=== PATIENT | male | born 1965 | race African-American/Black ===

== ENCOUNTER 2022-04-20 19:12 | Inpatient (IN) | payer OTHER ==
[2022-04-20 20:37] VITALS: BMI 22.4
[2022-04-20] MEDS ORDERED: NALOXONE HCL (KLOXXADO) 8 MG SPRAY NS PRN (20:52)
[2022-04-20] MEDS ORDERED: guaiFENesin 200 MG/10 ML 10 ML UNIT-DOSE CUPS PO PRN (20:52)
[2022-04-20] MEDS ORDERED: P-EPHED 60MG/TRIPROLIDI 2.5MG TABLET PO PRN (20:52)
[2022-04-20] MEDS ORDERED: MAGNESIUM CITRATE 300 ML BOTTLE PO PRN (20:52)
[2022-04-20] MEDS ORDERED: NICOTINE POLACRILEX 2 MG GUM BUC PRN (20:52)
[2022-04-20] MEDS ORDERED: BISMUTH SUBSALICYLATE 524 MG/30 ML PO PRN (20:52)
[2022-04-20] MEDS ORDERED: LOPERAMIDE HCL 2 MG CAPSULE PO PRN (20:52)
[2022-04-20] MEDS ORDERED: MAG HYDROX/AL HYDROX/SIMETH 30 ML UNIT-DOSE CUP PO PRN (20:52)
[2022-04-20] MEDS ORDERED: hydrOXYzine PAMOATE 25 MG CAPSULE (FP) PO PRN (20:52)
[2022-04-20] MEDS ORDERED: BENZOCAINE/MENTHOL (CHLORASEPTIC ) LOZENGE MM PRN (20:52)
[2022-04-20] MEDS ORDERED: METHOCARBAMOL 500 MG TABLET PO PRN (20:52)
[2022-04-20] MEDS ORDERED: ACETAMINOPHEN 325 MG TABLET (FP) PO PRN ×2 (20:52)
[2022-04-20] MEDS ORDERED: IBUPROFEN 400 MG TABLET (FP) PO PRN (20:52)
[2022-04-20] MEDS ORDERED: MAGNESIUM HYDROX 2400MG/30ML ORAL SUSPENSION 30 ML CUP PO PRN (20:52)
[2022-04-20] MEDS ORDERED: ONDANSETRON *ODT* 4 MG TABLET SL PRN (20:52)
[2022-04-20] MEDS ORDERED: IBUPROFEN 600 MG TABLET (FP) PO PRN (20:52)
[2022-04-20] MEDS ORDERED: diazePAM 5 MG TABLET PO PRN (20:52)
[2022-04-20] MEDS ORDERED: methaDONE HCL 10 MG TABLET (FOR DETOX USE ONLY) PO ONE (21:00)
[2022-04-20] MEDS ORDERED: methaDONE HCL 10 MG TABLET (FOR DETOX USE ONLY) ONE (22:22)
[2022-04-20] MEDS: diazePAM 5 MG TABLET PO SCH (23:52)
[2022-04-20] MEDS: MELATONIN 5 MG TABLETS PO SCH (23:52)
[2022-04-20] MEDS: THIAMINE HCL 100 MG TABLET (FP) PO SCH (23:53)
[2022-04-21] MEDS: diazePAM 5 MG TABLET PO SCH ×3 (05:30→17:23)
[2022-04-21] MEDS ORDERED: methaDONE HCL 10 MG TABLET (FOR DETOX USE ONLY) ONE (09:00)
[2022-04-21] MEDS ORDERED: NICOTINE 21 MG/24 HOURS TOPICAL PATCH TD SCH (10:00)
[2022-04-21] MEDS ORDERED: PRENATAL VITAMINS W/ FOLIC ACID TABLET (FP) PO SCH (10:00)
[2022-04-21] MEDS ORDERED: TRIMETHOBENZAMIDE HCL 200MG/2ML INJ IM PRN (11:28)
[2022-04-21] MEDS: DICYCLOMINE HCL 10 MG CAPSULE PO PRN ×2 (12:02→17:23)
[2022-04-21] MEDS: cloNIDine HCL 0.1 MG TABLET PO PRN ×2 (13:27→17:23)
[2022-04-21 23:43] VITALS: BP 176/99; PULSE 44; TEMP 98.6
[2022-04-22] MEDS: diazePAM 5 MG TABLET PO SCH (00:12)
[2022-04-22] MEDS: THIAMINE HCL 100 MG TABLET (FP) PO SCH (00:12)
[2022-04-22] MEDS: MELATONIN 5 MG TABLETS PO SCH (00:12)
[2022-04-22] MEDS ORDERED: diazePAM 5 MG TABLET PO SCH (06:00)
[2022-04-22] MEDS ORDERED: methaDONE HCL 10 MG TABLET (FOR DETOX USE ONLY) PO ONE (10:00)
[2022-04-23] MEDS ORDERED: diazePAM 5 MG TABLET PO SCH (06:00)
[2022-04-24] MEDS ORDERED: diazePAM 5 MG TABLET PO ONE (06:00)
[2022-04-24] MEDS ORDERED: methaDONE HCL 10 MG TABLET (FOR DETOX USE ONLY) PO ONE (10:00)
== END 2022-04-22 04:53 | disposition short-term general hospital (02) | DRG 773 ==
LOC: YASAS 19:12 → Y6N 22:03
PROVIDERS: ADMIT Allergy & Immunology; ATTEND Surgery
PROC: HZ2ZZZZ Detoxification Services for Substance Abuse Treatment (ICD-10-PCS; principal; 2022-04-20)
DX: F11.23 Opioid dependence with withdrawal (principal); F10.230 Alcohol dependence with withdrawal, uncomplicated; F14.20 Cocaine dependence, uncomplicated; F13.20 Sedative, hypnotic or anxiolytic dependence, uncomplicated; F12.20 Cannabis dependence, uncomplicated; F17.210 Nicotine dependence, cigarettes, uncomplicated; F32.A Depression, unspecified; R00.1 Bradycardia, unspecified; R10.13 Epigastric pain; R11.10 Vomiting, unspecified; Z28.310 Unvaccinated for COVID-19
CPT/HCPCS: 93005; 93010; C9803-CS; J0735; U0003; U0005

== ENCOUNTER 2022-04-21 21:24 | Inpatient (IN) | payer OTHER ==
[2022-04-21 21:41] VITALS: TEMP 98.6
[2022-04-21 21:46] VITALS: BMI 22.2
[2022-04-21 22:24] LABS: EOS % 0.1 % (0-4.5); HEMATOCRIT 45.3 % (35.4-49); HEMOGLOBIN 15.5 GM/dL (11.7-16.9); LYMPH % 16.5 % (8-40); MCH 30.5 pg (25.7-33.7); MCHC 34.2 g/dl (32.0-35.9); MEAN CELL VOLUME 89.1 fl (80-96); MEAN PLT VOLUME 7.6 fl (7.5-11.1); MONO % 7.8 % (3.8-10.2); NEUT % 74.6 % (42.8-82.8); PLATELET COUNT 331 10^3/uL (134-434); RBC 5.09 M/mm3 (4.00-5.60); RDW 13.5 % (11.9-15.9); WHITE BLOOD COUNT 4.3 K/mm3 (4.0-10.0)
[2022-04-21 22:31] LABS: INR 1.15 (0.83-1.09); PROTHROMBIN TIME (PATIENT) 13.2 SEC (9.7-13.0)
[2022-04-21 22:33] LABS: ACTIVATED PTT 35.9 SECONDS (25.2-36.5)
[2022-04-21 22:45] LABS: CALCIUM 9.1 mg/dL (8.5-10.1)
[2022-04-21 22:46] LABS: ALBUMIN 3.5 g/dl (3.4-5.0)
[2022-04-21 22:48] LABS: CREATININE 0.6 mg/dL (0.55-1.3)
[2022-04-21] MEDS ORDERED: ACETAMINOPHEN 1000 MG/100 ML BAG IVPB ONE (22:48)
[2022-04-21] MEDS ORDERED: ACETAMINOPHEN INJECTION 100 ML IVPB ONE (22:49)
[2022-04-21 22:50] LABS: BILIRUBIN,TOTAL 0.9 mg/dL (0.2-1)
[2022-04-22] MEDS ORDERED: ASPIRIN 81 MG CHEWABLE TABLETS PO ONE (01:56)
[2022-04-22] MEDS ORDERED: ASPIRIN 81 MG CHEWABLE TABLETS ONE ×2 (01:58→01:59)
[2022-04-22] MEDS ORDERED: LORazepam 2 MG/ML SDV VIAL IVPUSH ONE (02:09)
[2022-04-22] MEDS ORDERED: hydrALAZINE HCL 20 MG/ML VIAL IVPUSH ONE (03:29)
[2022-04-22] MEDS ORDERED: hydrALAZINE HCL 20 MG/ML VIAL ONE (03:39)
[2022-04-22] MEDS ORDERED: ONDANSETRON 4 MG/2 ML VIAL ONE (04:32)
[2022-04-22] MEDS ORDERED: cloNIDine HCL 0.1 MG TABLET PO PRN (04:47)
[2022-04-22] MEDS ORDERED: LORazepam 1 MG TABLET PO PRN (04:47)
[2022-04-22] MEDS ORDERED: TRIMETHOBENZAMIDE HCL 200MG/2ML INJ IM PRN (04:52)
[2022-04-22 04:55] LABS: URINE APPEARANCE CLEAR; URINE BILIRUBIN NEGATIVE (NEGATIVE); URINE COLOR YELLOW; URINE GLUCOSE (UA) NEGATIVE (NEGATIVE); URINE KETONE 2+ (NEGATIVE); URINE LEUK ESTERASE NEGATIVE (NEGATIVE); URINE NITRITE NEGATIVE (NEGATIVE); URINE PROTEIN NEGATIVE (NEGATIVE)
[2022-04-22] MEDS ORDERED: FOLIC ACID INJECTION - 1 MG, THIAMINE HCL 100 MG, MULTIVIT INJECTION ADULT 10 ML in SOD... IVPB ONE (04:58)
[2022-04-22] MEDS ORDERED: LORazepam 1 MG TABLET PO SCH (05:00)
[2022-04-22] MEDS ORDERED: methaDONE HCL 10 MG TABLET PO ONE (05:30)
[2022-04-22] MEDS ORDERED: LORazepam 1 MG TABLET ONE (05:33)
[2022-04-22] MEDS ORDERED: methaDONE HCL 10 MG TABLET ONE (05:33)
[2022-04-22] MEDS ORDERED: SODIUM CHLORIDE 1,000 ML IV SCH (07:00)
[2022-04-22] MEDS ORDERED: MAGNESIUM 1GM/D5W - 1 GM/100 ML IVPB IVPB ONE (09:41)
[2022-04-22] MEDS ORDERED: ENOXAPARIN NA (PORCINE) 40 MG/0.4 ML DISP.SYRIN SQ ONE (09:41)
[2022-04-22] MEDS ORDERED: ENOXAPARIN NA (PORCINE) 40 MG/0.4 ML DISP.SYRIN SQ SCH (10:00)
[2022-04-22] MEDS ORDERED: MAGNESIUM 1GM/D5W 100ML - 100 ML IVPB IVPB ONE (10:00)
[2022-04-22] MEDS ORDERED: SODIUM CHLORIDE 1 GM TABLET PO ONE (11:00)
[2022-04-22 11:27] VITALS: BP 152/72; PULSE 89
[2022-04-23] MEDS ORDERED: LORazepam 1 MG TABLET PO SCH (05:00)
[2022-04-23] MEDS ORDERED: amLODIPine BESYLATE 10 MG TABLET (FP) PO SCH (10:00)
[2022-04-24] MEDS ORDERED: LORazepam 0.5 MG TABLET PO PRN
[2022-04-24] MEDS ORDERED: LORazepam 0.5 MG TABLET PO SCH (05:00)
[2022-04-24] MEDS ORDERED: methaDONE HCL 10 MG TABLET PO ONE (10:00)
[2022-04-25] MEDS ORDERED: LORazepam 0.5 MG TABLET PO ONE (05:00)
[2022-04-26] MEDS ORDERED: methaDONE HCL 10 MG TABLET PO ONE (10:00)
== END 2022-04-22 13:08 | disposition other institution (70) | DRG 773 ==
LOC: JER 21:24 → JERBED 04-22 03:57 → OBSVTOIN 04-22 04:52
PROVIDERS: ADMIT Internal Medicine; ATTEND Internal Medicine
DX: F10.239 Alcohol dependence with withdrawal, unspecified (principal); F11.23 Opioid dependence with withdrawal; I24.8 Other forms of acute ischemic heart disease; E87.8 Other disorders of electrolyte and fluid balance, not elsewhere classified; R10.84 Generalized abdominal pain; I16.0 Hypertensive urgency; R11.2 Nausea with vomiting, unspecified; R19.7 Diarrhea, unspecified; F32.A Depression, unspecified; F17.210 Nicotine dependence, cigarettes, uncomplicated
CPT/HCPCS: 36415; 71045-TC-FY; 74177-TC; 80053; 81003; 83690; 84484; 85025; 85610; 85730; 87086; 87186; 93005; 93010; 99285-25; G0378; Q9967

== ENCOUNTER 2023-09-27 21:23 | Inpatient (IN) | payer OTHER ==
[2023-09-27] MEDS ORDERED: NALOXONE HCL 0.4 MG/ML VIAL ONE (21:43)
[2023-09-27 22:56] LABS: CHLORIDE 105 mmol/L (98-107); POTASSIUM 4.8 mmol/L (3.5-5.1); SODIUM 138 mmol/L (136-145)
[2023-09-27 22:58] LABS: CALCIUM 8.9 mg/dL (8.5-10.1)
[2023-09-27 23:00] LABS: ALBUMIN 2.7 g/dl (3.4-5.0); ANION GAP 5 mmol/L (4-13); CO2 27 mmol/L (21-32); GLUCOSE,RANDOM 74 mg/dL (74-106)
[2023-09-27 23:01] LABS: BASO % 0.6 % (0-2.0); EOS % 2.5 % (0-4.5); HEMATOCRIT 31.4 % (35.4-49); HEMOGLOBIN 10.5 GM/dL (11.7-16.9); MCH 29.7 pg (25.7-33.7); MCHC 33.5 g/dl (32.0-35.9); MEAN CELL VOLUME 88.6 fl (80-96); MEAN PLT VOLUME 6.6 fl (7.5-11.1); NEUT % 52.9 % (42.8-82.8); PLATELET COUNT 328 10^3/uL (134-434); RBC 3.54 M/mm3 (4.00-5.60); RDW 13.2 % (11.9-15.9); WHITE BLOOD COUNT 3.9 K/mm3 (4.0-10.0)
[2023-09-27 23:03] LABS: BILIRUBIN,TOTAL 0.6 mg/dL (0.2-1); CREATININE 0.9 mg/dL (0.55-1.3); PHOSPHOROUS 3.5 mg/dL (2.5-4.9); SGOT/AST 26 U/L (15-37); SGPT/ALT 15 U/L (13-61); TOT PROT 6.7 g/dl (6.4-8.2)
[2023-09-27 23:06] LABS: ALK PHOS 56 U/L (45-117)
[2023-09-27 23:35] LABS: N-TERMINAL BNP 506.3 pg/ml (5-125)
[2023-09-28] MEDS ORDERED: AZITHROMYCIN IVPB 500 MG/250 ML BAG IVPB ONE (05:38)
[2023-09-28] MEDS ORDERED: CEFTRIAXONE 1 GM/50 ML BAG ONE (05:38)
[2023-09-28] MEDS: AZITHROMYCIN IVPB 500 MG in DEXTROSE 5%-WATER - 250 ML IVPB ONE (05:42)
[2023-09-28] MEDS ORDERED: ACETAMINOPHEN INJECTION 100 ML IVPB ONE (06:50)
[2023-09-28] MEDS: ACETAMINOPHEN 1000 MG/100 ML BAG IVPB ONE (06:54)
[2023-09-28] MEDS ORDERED: NICOTINE 14 MG/24 HOURS TOPICAL PATCH TD ONE (09:01)
[2023-09-28] MEDS ORDERED: methaDONE HCL 10 MG TABLET ONE (09:01)
[2023-09-28] MEDS ORDERED: AMPICILLIN NA/SULBACTAM NA 1.5 GM VIAL ONE ×3 (09:01→21:43)
[2023-09-28] MEDS ORDERED: ENOXAPARIN NA (PORCINE) 40 MG/0.4 ML DISP.SYRIN SQ ONE (09:01)
[2023-09-28] MEDS: NICOTINE 14 MG/24 HOURS TOPICAL PATCH TD SCH (09:20)
[2023-09-28] MEDS: ENOXAPARIN NA (PORCINE) 40 MG/0.4 ML DISP.SYRIN SQ SCH (09:20)
[2023-09-28] MEDS: AMPICILLIN NA/SULBACTAM NA 1.5 GM in SODIUM CHLORIDE 100 ML IVPB SCH (09:20)
[2023-09-28] MEDS: methaDONE HCL 10 MG TABLET (FOR DETOX USE ONLY) PO ONE (09:20)
[2023-09-28] MEDS ORDERED: MAG HYDROX/AL HYDROX/SIMETH 30 ML UNIT-DOSE CUP PO PRN (10:09)
[2023-09-28] MEDS: methaDONE HCL 10 MG TABLET PO ONE (10:10)
[2023-09-28] MEDS ORDERED: BUPRENORPHINE/NALOXONE 8 MG/2 MG FILM PACKET ONE ×2 (10:37→21:43)
[2023-09-28] MEDS ORDERED: DOXYCYCLINE HYCLATE 100 MG VIAL ONE ×2 (10:37→21:43)
[2023-09-28] MEDS ORDERED: PANTOPRAZOLE SODIUM 40 MG VIAL ONE (10:37)
[2023-09-28] MEDS: BUPRENORPHINE/NALOXONE 8 MG/2 MG FILM PACKET SL SCH (10:54)
[2023-09-28] MEDS: PANTOPRAZOLE SODIUM 40 MG VIAL IVPUSH SCH (10:54)
[2023-09-28] MEDS: DOXYCYCLINE INJECTION 100 MG in DEXTROSE 5%-WATER 100 ML IVPB SCH (11:11)
[2023-09-29] MEDS: FOLIC ACID INJECTION - 1 MG, THIAMINE HCL 100 MG, MULTIVIT INJECTION ADULT 10 ML in SOD... IVPB ONE (01:31)
[2023-09-29] MEDS ORDERED: AMPICILLIN NA/SULBACTAM NA 1.5 GM VIAL ONE (01:39)
[2023-09-29] MEDS ORDERED: BUPRENORPHINE/NALOXONE 8 MG/2 MG FILM PACKET ONE (11:22)
[2023-09-29] MEDS: AMOXICILLIN 500 MG CAPSULE (FP) PO SCH (17:23)
[2023-09-29] MEDS: DOXYCYCLINE HYCLATE 100 MG CAPSULE PO SCH (17:46)
[2023-09-29 21:24] LABS: METHADONE, UR NEGATIVE (NEGATIVE)
[2023-09-29 21:26] LABS: OPIATES, URI NEGATIVE (NEGATIVE); URINE BARBITURATES NEGATIVE (NEGATIVE)
[2023-09-29 21:34] LABS: PHENCYCLIDINE,URINE NEGATIVE (NEGATIVE)
[2023-09-29 21:35] LABS: COCAINE, UR POSITIVE (NEGATIVE); URINE AMPHETAMINES NEGATIVE (NEGATIVE); URINE BENZODIAZEPINES POSITIVE (NEGATIVE)
[2023-09-29] MEDS: cloNIDine HCL 0.1 MG TABLET PO PRN (23:18)
[2023-09-30] MEDS: FOLIC ACID 1 MG TABLET (FP) PO SCH (09:03)
[2023-09-30] MEDS: THIAMINE HCL 100 MG TABLET (FP) PO SCH (09:03)
[2023-09-30] MEDS: amLODIPine BESYLATE 10 MG TABLET (FP) PO SCH (09:26)
[2023-09-30] MEDS: PANTOPRAZOLE 40 MG TABLET PO SCH (09:26)
[2023-09-30 09:43] LABS: MCH 29.7 pg (25.7-33.7); MCHC 34.1 g/dl (32.0-35.9); MEAN CELL VOLUME 87.3 fl (80-96); MEAN PLT VOLUME 7.4 fl (7.5-11.1); PLATELET COUNT 507 10^3/uL (134-434); RDW 13.4 % (11.9-15.9); WHITE BLOOD COUNT 5.3 K/mm3 (4.0-10.0)
[2023-09-30] MEDS ORDERED: methaDONE HCL 10 MG TABLET PO ONE (10:00)
[2023-09-30 10:05] LABS: POTASSIUM 3.7 mmol/L (3.5-5.1)
[2023-09-30 10:06] LABS: CALCIUM 9.2 mg/dL (8.5-10.1)
[2023-09-30 10:07] LABS: BLOOD UREA NITROGEN 14.2 mg/dL (7-18); MAGNESIUM 1.9 mg/dL (1.8-2.4)
[2023-09-30 10:11] LABS: CREATININE 0.8 mg/dL (0.55-1.3); PHOSPHOROUS 2.6 mg/dL (2.5-4.9)
[2023-09-30 14:27] VITALS: BMI 21.1
[2023-10-01 00:03] VITALS: RESP 20
[2023-10-01 09:20] LABS: BASO % 0.6 % (0-2.0); EOS % 0.7 % (0-4.5); HEMATOCRIT 39.6 % (35.4-49); HEMOGLOBIN 13.7 GM/dL (11.7-16.9); LYMPH % 35.4 % (8-40); MCH 30.2 pg (25.7-33.7); MCHC 34.6 g/dl (32.0-35.9); MEAN CELL VOLUME 87.3 fl (80-96); MEAN PLT VOLUME 6.9 fl (7.5-11.1); MONO % 10.6 % (3.8-10.2); NEUT % 52.7 % (42.8-82.8); PLATELET COUNT 521 10^3/uL (134-434); RBC 4.53 M/mm3 (4.00-5.60); RDW 13.1 % (11.9-15.9); WHITE BLOOD COUNT 4.3 K/mm3 (4.0-10.0)
[2023-10-01 09:56] LABS: POTASSIUM 3.6 mmol/L (3.5-5.1)
[2023-10-01 10:23] LABS: ALBUMIN 3.3 g/dl (3.4-5.0)
[2023-10-01 10:25] LABS: BLOOD UREA NITROGEN 16.8 mg/dL (7-18)
[2023-10-01 10:28] LABS: MAGNESIUM 1.8 mg/dL (1.8-2.4); TOT PROT 7.7 g/dl (6.4-8.2)
[2023-10-01 10:29] LABS: CREATININE 0.9 mg/dL (0.55-1.3)
[2023-10-01 10:32] LABS: BILIRUBIN,TOTAL 0.8 mg/dL (0.2-1)
[2023-10-01 14:25] VITALS: BP 140/83; PULSE 62; TEMP 98.3
[2023-10-02] MEDS ORDERED: methaDONE HCL 10 MG TABLET PO ONE (10:00)
== END 2023-10-01 15:53 | disposition other institution (70) | DRG 139 ==
LOC: JER 21:23 → JERBED 22:59 → J8W 09-29 15:19
PROVIDERS: ADMIT Internal Medicine; ATTEND Student in an Organized Health Care Education/Training Program
DX: J18.9 Pneumonia, unspecified organism (principal); F32.A Depression, unspecified; I10 Essential (primary) hypertension; F10.239 Alcohol dependence with withdrawal, unspecified; R41.82 Altered mental status, unspecified; R53.1 Weakness; F14.20 Cocaine dependence, uncomplicated; F13.10 Sedative, hypnotic or anxiolytic abuse, uncomplicated; R19.7 Diarrhea, unspecified; F17.210 Nicotine dependence, cigarettes, uncomplicated
CPT/HCPCS: 0241U-QW; 36415; 70450-TC; 71045-TC-FY; 71275-TC; 74174-TC; 80048; 80053; 80307; 82728; 82962; 83540; 83550; 83735; 83880; 84100; 85025; 85027; 85045; 86140; 86480; 87899; 93005; 93010; 99285-25; J0131; Q9967

== ENCOUNTER 2023-10-01 16:11 | Inpatient (IN) | payer OTHER ==
[2023-10-01 17:30] VITALS: BMI 17.6
[2023-10-01] MEDS ORDERED: BENZOCAINE/MENTHOL (CHLORASEPTIC ) LOZENGE MM PRN (22:18)
[2023-10-01] MEDS ORDERED: IBUPROFEN 600 MG TABLET (FP) PO PRN (22:18)
[2023-10-01] MEDS ORDERED: LOPERAMIDE HCL 2 MG CAPSULE PO PRN (22:18)
[2023-10-01] MEDS ORDERED: COLLOIDAL OATMEAL 1 BAR EACH TP PRN (22:18)
[2023-10-01] MEDS ORDERED: MAG HYDROX/AL HYDROX/SIMETH 30 ML UNIT-DOSE CUP PO PRN (22:18)
[2023-10-01] MEDS ORDERED: P-EPHED 60MG/TRIPROLIDI 2.5MG TABLET PO PRN (22:18)
[2023-10-01] MEDS ORDERED: IBUPROFEN 400 MG TABLET (FP) PO PRN (22:18)
[2023-10-01] MEDS ORDERED: BENZONATATE 200 MG CAPSULE PO PRN (22:18)
[2023-10-01] MEDS ORDERED: POLYETHYLENE GLYCOL (HEALTHYLAX) 3350 17 GM PACKET PO PRN (22:18)
[2023-10-01] MEDS ORDERED: guaiFENesin 600 MG TABLET.ER (FP) PO PRN (22:18)
[2023-10-01] MEDS ORDERED: MAGNESIUM HYDROX 2400MG/30ML ORAL SUSPENSION 30 ML CUP PO PRN (22:18)
[2023-10-01] MEDS ORDERED: hydrOXYzine PAMOATE 25 MG CAPSULE (FP) PO PRN (22:18)
[2023-10-01] MEDS ORDERED: ACETAMINOPHEN 325 MG TABLET (FP) PO PRN (22:18)
[2023-10-01] MEDS ORDERED: NALOXONE HCL (KLOXXADO) 8 MG SPRAY NS PRN (22:18)
[2023-10-01] MEDS ORDERED: METHOCARBAMOL 500 MG TABLET PO PRN (22:18)
[2023-10-01] MEDS ORDERED: NALOXONE HCL 0.4 MG/ML VIAL IVPUSH PRN (22:18)
[2023-10-02] MEDS: MELATONIN 5 MG TABLETS PO SCH ×2 (06:40→22:36)
[2023-10-02] MEDS: BUPRENORPHINE/NALOXONE 8 MG/2 MG FILM PACKET SL SCH ×3 (06:41→22:36)
[2023-10-02] MEDS: PRENATAL VITAMINS W/ FOLIC ACID TABLET (FP) PO SCH (09:56)
[2023-10-02] MEDS: THIAMINE HCL 100 MG TABLET (FP) PO SCH (22:36)
[2023-10-03] MEDS: PRENATAL VITAMINS W/ FOLIC ACID TABLET (FP) PO SCH (10:08)
[2023-10-03] MEDS: BUPRENORPHINE/NALOXONE 8 MG/2 MG FILM PACKET SL SCH ×2 (10:08→21:57)
[2023-10-03] MEDS ORDERED: AMMONIUM LACTATE 12% LOTION 225 GM BOTTLE TP PRN (11:23)
[2023-10-03] MEDS: THIAMINE HCL 100 MG TABLET (FP) PO SCH (21:57)
[2023-10-03] MEDS: MELATONIN 5 MG TABLETS PO SCH (21:57)
[2023-10-04] MEDS: PRENATAL VITAMINS W/ FOLIC ACID TABLET (FP) PO SCH (09:33)
[2023-10-04] MEDS: BUPRENORPHINE/NALOXONE 8 MG/2 MG FILM PACKET SL SCH ×2 (09:34→21:28)
[2023-10-04] MEDS ORDERED: LACTULOSE 20 GM/30 ML UDC (FOR ORAL USE ONLY) PO PRN (15:28)
[2023-10-04] MEDS: LACTULOSE 20 GM/30 ML UDC (FOR ORAL USE ONLY) PO SCH ×2 (15:58→21:27)
[2023-10-04] MEDS: THIAMINE HCL 100 MG TABLET (FP) PO SCH (21:27)
[2023-10-04] MEDS: MELATONIN 5 MG TABLETS PO SCH (21:27)
[2023-10-05] MEDS: LACTULOSE 20 GM/30 ML UDC (FOR ORAL USE ONLY) PO SCH ×3 (06:35→21:04)
[2023-10-05] MEDS: BUPRENORPHINE/NALOXONE 8 MG/2 MG FILM PACKET SL SCH ×2 (10:12→21:04)
[2023-10-05] MEDS: PRENATAL VITAMINS W/ FOLIC ACID TABLET (FP) PO SCH (10:12)
[2023-10-05] MEDS: THIAMINE HCL 100 MG TABLET (FP) PO SCH (21:04)
[2023-10-05] MEDS: MELATONIN 5 MG TABLETS PO SCH (21:04)
[2023-10-06] MEDS: LACTULOSE 20 GM/30 ML UDC (FOR ORAL USE ONLY) PO SCH ×3 (06:58→21:25)
[2023-10-06] MEDS: BUPRENORPHINE/NALOXONE 8 MG/2 MG FILM PACKET SL SCH ×2 (09:45→21:25)
[2023-10-06] MEDS: PRENATAL VITAMINS W/ FOLIC ACID TABLET (FP) PO SCH (09:45)
[2023-10-06] MEDS: MELATONIN 5 MG TABLETS PO SCH (21:25)
[2023-10-06] MEDS: THIAMINE HCL 100 MG TABLET (FP) PO SCH (21:25)
[2023-10-07] MEDS: LACTULOSE 20 GM/30 ML UDC (FOR ORAL USE ONLY) PO SCH ×3 (06:13→21:44)
[2023-10-07] MEDS: PRENATAL VITAMINS W/ FOLIC ACID TABLET (FP) PO SCH (10:15)
[2023-10-07] MEDS: BUPRENORPHINE/NALOXONE 8 MG/2 MG FILM PACKET SL SCH ×2 (10:15→21:46)
[2023-10-07] MEDS: THIAMINE HCL 100 MG TABLET (FP) PO SCH (21:44)
[2023-10-07] MEDS: MELATONIN 5 MG TABLETS PO SCH (21:44)
[2023-10-08] MEDS: LACTULOSE 20 GM/30 ML UDC (FOR ORAL USE ONLY) PO SCH ×3 (06:44→21:45)
[2023-10-08] MEDS: BUPRENORPHINE/NALOXONE 8 MG/2 MG FILM PACKET SL SCH ×2 (10:16→21:58)
[2023-10-08] MEDS: PRENATAL VITAMINS W/ FOLIC ACID TABLET (FP) PO SCH (10:16)
[2023-10-08] MEDS: THIAMINE HCL 100 MG TABLET (FP) PO SCH (21:45)
[2023-10-08] MEDS: MELATONIN 5 MG TABLETS PO SCH (21:45)
[2023-10-09] MEDS: LACTULOSE 20 GM/30 ML UDC (FOR ORAL USE ONLY) PO SCH ×3 (06:37→21:16)
[2023-10-09] MEDS: PRENATAL VITAMINS W/ FOLIC ACID TABLET (FP) PO SCH (09:39)
[2023-10-09] MEDS: BUPRENORPHINE/NALOXONE 8 MG/2 MG FILM PACKET SL SCH ×2 (09:40→21:16)
[2023-10-09] MEDS: THIAMINE HCL 100 MG TABLET (FP) PO SCH (21:16)
[2023-10-09] MEDS: MELATONIN 5 MG TABLETS PO SCH (21:16)
[2023-10-10] MEDS: LACTULOSE 20 GM/30 ML UDC (FOR ORAL USE ONLY) PO SCH ×3 (06:37→21:07)
[2023-10-10] MEDS: PRENATAL VITAMINS W/ FOLIC ACID TABLET (FP) PO SCH (09:51)
[2023-10-10] MEDS: BUPRENORPHINE/NALOXONE 8 MG/2 MG FILM PACKET SL SCH ×2 (09:51→21:11)
[2023-10-10] MEDS: THIAMINE HCL 100 MG TABLET (FP) PO SCH (21:07)
[2023-10-10] MEDS: MELATONIN 5 MG TABLETS PO SCH (21:11)
[2023-10-11] MEDS: LACTULOSE 20 GM/30 ML UDC (FOR ORAL USE ONLY) PO SCH ×2 (06:43→13:44)
[2023-10-11] MEDS: BUPRENORPHINE/NALOXONE 8 MG/2 MG FILM PACKET SL SCH ×2 (10:05→21:10)
[2023-10-11] MEDS: PRENATAL VITAMINS W/ FOLIC ACID TABLET (FP) PO SCH (10:05)
[2023-10-11] MEDS: MELATONIN 5 MG TABLETS PO SCH (21:09)
[2023-10-11] MEDS: THIAMINE HCL 100 MG TABLET (FP) PO SCH (21:09)
[2023-10-12] MEDS: PRENATAL VITAMINS W/ FOLIC ACID TABLET (FP) PO SCH (09:51)
[2023-10-12] MEDS: BUPRENORPHINE/NALOXONE 8 MG/2 MG FILM PACKET SL SCH ×2 (09:51→21:06)
[2023-10-12] MEDS: amLODIPine BESYLATE 10 MG TABLET (FP) PO SCH (13:23)
[2023-10-12] MEDS: MELATONIN 5 MG TABLETS PO SCH (21:06)
[2023-10-12] MEDS: THIAMINE HCL 100 MG TABLET (FP) PO SCH (21:06)
[2023-10-13] MEDS: PRENATAL VITAMINS W/ FOLIC ACID TABLET (FP) PO SCH (10:11)
[2023-10-13] MEDS: BUPRENORPHINE/NALOXONE 8 MG/2 MG FILM PACKET SL SCH ×2 (10:11→21:43)
[2023-10-13] MEDS: amLODIPine BESYLATE 10 MG TABLET (FP) PO SCH (10:11)
[2023-10-13] MEDS: THIAMINE HCL 100 MG TABLET (FP) PO SCH (21:30)
[2023-10-13] MEDS: MELATONIN 5 MG TABLETS PO SCH (21:30)
[2023-10-14] MEDS: amLODIPine BESYLATE 10 MG TABLET (FP) PO SCH (10:02)
[2023-10-14] MEDS: PRENATAL VITAMINS W/ FOLIC ACID TABLET (FP) PO SCH (10:03)
[2023-10-14] MEDS: BUPRENORPHINE/NALOXONE 8 MG/2 MG FILM PACKET SL SCH ×2 (10:03→21:32)
[2023-10-14] MEDS: THIAMINE HCL 100 MG TABLET (FP) PO SCH (21:19)
[2023-10-14] MEDS: MELATONIN 5 MG TABLETS PO SCH (21:19)
[2023-10-15] MEDS: amLODIPine BESYLATE 10 MG TABLET (FP) PO SCH (10:40)
[2023-10-15] MEDS: PRENATAL VITAMINS W/ FOLIC ACID TABLET (FP) PO SCH (10:40)
[2023-10-15] MEDS: BUPRENORPHINE/NALOXONE 8 MG/2 MG FILM PACKET SL SCH ×2 (10:40→21:34)
[2023-10-15] MEDS: MELATONIN 5 MG TABLETS PO SCH (21:34)
[2023-10-15] MEDS: THIAMINE HCL 100 MG TABLET (FP) PO SCH (21:34)
[2023-10-16] MEDS: BUPRENORPHINE/NALOXONE 8 MG/2 MG FILM PACKET SL SCH ×2 (09:50→21:42)
[2023-10-16] MEDS: amLODIPine BESYLATE 10 MG TABLET (FP) PO SCH (09:51)
[2023-10-16] MEDS: PRENATAL VITAMINS W/ FOLIC ACID TABLET (FP) PO SCH (09:51)
[2023-10-16] MEDS: MELATONIN 5 MG TABLETS PO SCH (21:42)
[2023-10-16] MEDS: THIAMINE HCL 100 MG TABLET (FP) PO SCH (21:42)
[2023-10-17] MEDS: PRENATAL VITAMINS W/ FOLIC ACID TABLET (FP) PO SCH (10:03)
[2023-10-17] MEDS: amLODIPine BESYLATE 10 MG TABLET (FP) PO SCH (10:04)
[2023-10-17] MEDS: BUPRENORPHINE/NALOXONE 8 MG/2 MG FILM PACKET SL SCH ×2 (10:04→21:20)
[2023-10-17] MEDS: MELATONIN 5 MG TABLETS PO SCH (21:19)
[2023-10-17] MEDS: THIAMINE HCL 100 MG TABLET (FP) PO SCH (21:20)
[2023-10-18] MEDS: PRENATAL VITAMINS W/ FOLIC ACID TABLET (FP) PO SCH (09:46)
[2023-10-18] MEDS: BUPRENORPHINE/NALOXONE 8 MG/2 MG FILM PACKET SL SCH ×2 (09:46→21:04)
[2023-10-18] MEDS: amLODIPine BESYLATE 10 MG TABLET (FP) PO SCH (09:46)
[2023-10-18] MEDS: MELATONIN 5 MG TABLETS PO SCH (21:04)
[2023-10-18] MEDS: THIAMINE HCL 100 MG TABLET (FP) PO SCH (21:04)
[2023-10-19] MEDS: BUPRENORPHINE/NALOXONE 8 MG/2 MG FILM PACKET SL SCH ×2 (09:43→21:17)
[2023-10-19] MEDS: PRENATAL VITAMINS W/ FOLIC ACID TABLET (FP) PO SCH (09:43)
[2023-10-19] MEDS: amLODIPine BESYLATE 10 MG TABLET (FP) PO SCH (09:43)
[2023-10-19] MEDS: THIAMINE HCL 100 MG TABLET (FP) PO SCH (21:17)
[2023-10-19] MEDS: MELATONIN 5 MG TABLETS PO SCH (21:17)
[2023-10-20] MEDS: amLODIPine BESYLATE 10 MG TABLET (FP) PO SCH (09:50)
[2023-10-20] MEDS: PRENATAL VITAMINS W/ FOLIC ACID TABLET (FP) PO SCH (09:51)
[2023-10-20] MEDS: BUPRENORPHINE/NALOXONE 8 MG/2 MG FILM PACKET SL SCH ×2 (09:53→21:22)
[2023-10-20] MEDS: MELATONIN 5 MG TABLETS PO SCH (21:22)
[2023-10-20] MEDS: THIAMINE HCL 100 MG TABLET (FP) PO SCH (21:22)
[2023-10-21 07:04] VITALS: TEMP 97.8
[2023-10-21 09:07] VITALS: BP 122/78; PULSE 87; RESP 16
[2023-10-21] MEDS: amLODIPine BESYLATE 10 MG TABLET (FP) PO SCH (09:47)
[2023-10-21] MEDS: BUPRENORPHINE/NALOXONE 8 MG/2 MG FILM PACKET SL SCH (09:47)
[2023-10-21] MEDS: PRENATAL VITAMINS W/ FOLIC ACID TABLET (FP) PO SCH (09:47)
== END 2023-10-21 10:27 | disposition home or self-care (01) | DRG 772 ==
LOC: YASAS 16:11 → Y3W 10-02 02:39
PROVIDERS: ADMIT Allergy & Immunology; ATTEND Surgery
PROC: HZ42ZZZ Group Counseling for Substance Abuse Treatment, Cognitive-Behavioral (ICD-10-PCS; principal; 2023-10-02)
DX: F11.20 Opioid dependence, uncomplicated (principal); F10.20 Alcohol dependence, uncomplicated; F13.20 Sedative, hypnotic or anxiolytic dependence, uncomplicated; F14.20 Cocaine dependence, uncomplicated; F17.210 Nicotine dependence, cigarettes, uncomplicated; F19.24 Other psychoactive substance dependence with psychoactive substance-induced mood disorder; I10 Essential (primary) hypertension; J18.9 Pneumonia, unspecified organism; Z86.19 Personal history of other infectious and parasitic diseases; Z28.310 Unvaccinated for COVID-19; Z28.9 Immunization not carried out for unspecified reason; Z56.0 Unemployment, unspecified; Z59.00 Homelessness unspecified
CPT/HCPCS: 82140; 87635

== ENCOUNTER 2024-03-09 23:03 | Inpatient (IN) | payer OTHER ==
[2024-03-09 23:26] VITALS: BMI 19.8
[2024-03-09] MEDS ORDERED: IBUPROFEN 600 MG TABLET (FP) PO PRN (23:48)
[2024-03-09] MEDS ORDERED: DICYCLOMINE HCL 10 MG CAPSULE PO PRN (23:48)
[2024-03-09] MEDS ORDERED: NICOTINE POLACRILEX 2 MG GUM BUC PRN (23:48)
[2024-03-09] MEDS ORDERED: guaiFENesin 600 MG TABLET.ER (FP) PO PRN (23:48)
[2024-03-09] MEDS ORDERED: BENZOCAINE/MENTHOL (CHLORASEPTIC ) LOZENGE MM PRN (23:48)
[2024-03-09] MEDS ORDERED: MAG HYDROX/AL HYDROX/SIMETH 30 ML UNIT-DOSE CUP PO PRN (23:48)
[2024-03-09] MEDS ORDERED: IBUPROFEN 400 MG TABLET (FP) PO PRN (23:48)
[2024-03-09] MEDS ORDERED: MAGNESIUM HYDROX 2400MG/30ML ORAL SUSPENSION 30 ML CUP PO PRN (23:48)
[2024-03-09] MEDS ORDERED: ONDANSETRON *ODT* 4 MG TABLET SL PRN (23:48)
[2024-03-09] MEDS ORDERED: NALOXONE HCL 0.4 MG/ML VIAL IM PRN (23:48)
[2024-03-09] MEDS ORDERED: BISMUTH SUBSALICYLATE 524 MG/30 ML PO PRN (23:48)
[2024-03-09] MEDS ORDERED: POLYETHYLENE GLYCOL (HEALTHYLAX) 3350 17 GM PACKET PO PRN (23:48)
[2024-03-09] MEDS ORDERED: NICOTINE POLACRILEX 2 MG LOZENGE BC PRN (23:48)
[2024-03-09] MEDS ORDERED: NALOXONE (NARCAN) HCL 4 MG/0.1 ML SPRAY NS PRN (23:48)
[2024-03-09] MEDS ORDERED: P-EPHED 60MG/TRIPROLIDI 2.5MG TABLET PO PRN (23:48)
[2024-03-09] MEDS ORDERED: LOPERAMIDE HCL 2 MG CAPSULE PO PRN (23:48)
[2024-03-09] MEDS ORDERED: BENZONATATE 200 MG CAPSULE PO PRN (23:48)
[2024-03-10] MEDS ORDERED: LORazepam 1 MG TABLET PO PRN (10:21)
[2024-03-10] MEDS ORDERED: methaDONE HCL 10 MG TABLET (FOR DETOX USE ONLY) ONE (10:43)
[2024-03-10] MEDS ORDERED: PRENATAL VITAMINS W/ FOLIC ACID TABLET (FP) PO ONE (10:45)
[2024-03-10] MEDS ORDERED: LORazepam 2 MG TABLET ONE (10:45)
[2024-03-10] MEDS: methaDONE HCL 10 MG TABLET PO ONE (10:48)
[2024-03-10] MEDS: PRENATAL VITAMINS W/ FOLIC ACID TABLET (FP) PO SCH (10:48)
[2024-03-10] MEDS: LORazepam 2 MG TABLET PO SCH (10:50)
[2024-03-10] MEDS ORDERED: methaDONE HCL 10 MG TABLET PO PRN (12:02)
[2024-03-10] MEDS: cloNIDine HCL 0.1 MG TABLET PO SCH (13:57)
[2024-03-10 15:17] LABS: HEMATOCRIT 43.5 % (35.4-49); HEMOGLOBIN 14.9 GM/dL (11.7-16.9); MCH 29.6 pg (25.7-33.7); MCHC 34.2 g/dl (32.0-35.9); MEAN CELL VOLUME 86.5 fl (80-96); PLATELET COUNT 371 10^3/uL (134-434); RBC 5.03 M/mm3 (4.00-5.60)
[2024-03-10 15:19] LABS: CHLORIDE 101 mmol/L (98-107); POTASSIUM 3.7 mmol/L (3.5-5.1); SODIUM 132 mmol/L (136-145)
[2024-03-10 15:29] LABS: GLUCOSE,RANDOM 109 mg/dL (74-106)
[2024-03-10 15:30] LABS: ALBUMIN 3.9 g/dl (3.4-5.0); ANION GAP 8 mmol/L (4-13); BLOOD UREA NITROGEN 40.8 mg/dL (7-18); CALCIUM 9.4 mg/dL (8.5-10.1); CO2 23 mmol/L (21-32); CREATININE 1.4 mg/dL (0.55-1.3); SGPT/ALT 22 U/L (13-61)
[2024-03-10 15:31] LABS: SGOT/AST 17 U/L (15-37); TOT PROT 7.8 g/dl (6.4-8.2)
[2024-03-10 15:33] LABS: ALK PHOS 92 U/L (45-117)
[2024-03-10] MEDS: ACETAMINOPHEN 325 MG TABLET (FP) PO PRN (17:15)
[2024-03-10] MEDS: THIAMINE 100 MG TABLET PO SCH (22:53)
[2024-03-10] MEDS: MELATONIN 5 MG TABLETS PO SCH (22:54)
[2024-03-11] MEDS ORDERED: amLODIPine BESYLATE 10 MG TABLET (FP) PO SCH (10:00)
[2024-03-11] MEDS ORDERED: methaDONE 40 MG, methaDONE 10 MG PO ONE (10:00)
[2024-03-11] MEDS: METHOCARBAMOL 500 MG TABLET PO PRN (11:45)
[2024-03-11] MEDS: hydrOXYzine PAMOATE 25 MG CAPSULE (FP) PO PRN (11:45)
[2024-03-11] MEDS: amLODIPine BESYLATE 10 MG TABLET (FP) PO SCH (11:46)
[2024-03-11] MEDS: methaDONE 40 MG, methaDONE 10 MG PO ONE (12:20)
[2024-03-12] MEDS ORDERED: cloNIDine HCL 0.1 MG TABLET PO PRN
[2024-03-12] MEDS: LORazepam 1 MG TABLET PO SCH (05:21)
[2024-03-12] MEDS: methaDONE 40 MG, methaDONE 20 MG PO ONE (10:12)
[2024-03-13] MEDS ORDERED: LORazepam 0.5 MG TABLET PO PRN
[2024-03-13] MEDS: LORazepam 0.5 MG TABLET PO SCH (05:11)
[2024-03-13] MEDS: methaDONE 40 MG, methaDONE 30 MG PO ONE (10:43)
[2024-03-14] MEDS: LORazepam 0.5 MG TABLET PO ONE (05:38)
[2024-03-14] MEDS: methaDONE HCL 40 MG DISPERSABLE TABLET PO ONE (09:44)
[2024-03-14 11:43] LABS: HEMATOCRIT 33.3 % (35.4-49); HEMOGLOBIN 11.2 GM/dL (11.7-16.9); MCH 29.4 pg (25.7-33.7); MCHC 33.7 g/dl (32.0-35.9); MEAN CELL VOLUME 87.3 fl (80-96); PLATELET COUNT 236 10^3/uL (134-434); RBC 3.81 M/mm3 (4.00-5.60); RDW 14.2 % (11.9-15.9); WHITE BLOOD COUNT 3.8 K/mm3 (4.0-10.0)
[2024-03-14 12:08] LABS: CREATININE 0.8 mg/dL (0.55-1.3)
[2024-03-15] MEDS: methaDONE 80 MG, methaDONE 10 MG PO ONE (09:25)
[2024-03-16] MEDS: methaDONE 80 MG, methaDONE 10 MG PO ONE (11:02)
[2024-03-16 14:25] VITALS: BP 116/73; PULSE 66; RESP 16; TEMP 98.9
== END 2024-03-16 14:28 | disposition other institution (70) | DRG 773 ==
LOC: YASAS 23:03 → Y6N 03-10 12:20
PROVIDERS: ADMIT Allergy & Immunology; ATTEND Surgery
PROC: HZ2ZZZZ Detoxification Services for Substance Abuse Treatment (ICD-10-PCS; principal; 2024-03-10)
DX: F11.23 Opioid dependence with withdrawal (principal); F13.230 Sedative, hypnotic or anxiolytic dependence with withdrawal, uncomplicated; F14.20 Cocaine dependence, uncomplicated; F17.210 Nicotine dependence, cigarettes, uncomplicated; F19.282 Other psychoactive substance dependence with psychoactive substance-induced sleep disorder; I10 Essential (primary) hypertension; D72.819 Decreased white blood cell count, unspecified; R79.89 Other specified abnormal findings of blood chemistry; Z99.89 Dependence on other enabling machines and devices
CPT/HCPCS: 36415; 80053; 80305; 80307; 82565; 84520; 85027; 86780; 87811; 93005; 93010

== ENCOUNTER 2024-03-16 14:41 | Inpatient (IN) | payer OTHER ==
[2024-03-16] MEDS ORDERED: BENZONATATE 200 MG CAPSULE PO PRN (16:06)
[2024-03-16] MEDS ORDERED: METHOCARBAMOL 500 MG TABLET PO PRN (16:06)
[2024-03-16] MEDS ORDERED: IBUPROFEN 400 MG TABLET (FP) PO PRN (16:06)
[2024-03-16] MEDS ORDERED: IBUPROFEN 600 MG TABLET (FP) PO PRN (16:06)
[2024-03-16] MEDS ORDERED: NALOXONE HCL 0.4 MG/ML VIAL IVPUSH PRN (16:06)
[2024-03-16] MEDS ORDERED: guaiFENesin 600 MG TABLET.ER (FP) PO PRN (16:06)
[2024-03-16] MEDS ORDERED: LOPERAMIDE HCL 2 MG CAPSULE PO PRN (16:06)
[2024-03-16] MEDS ORDERED: MAGNESIUM HYDROX 2400MG/30ML ORAL SUSPENSION 30 ML CUP PO PRN (16:06)
[2024-03-16] MEDS ORDERED: BENZOCAINE/MENTHOL (CHLORASEPTIC ) LOZENGE MM PRN (16:06)
[2024-03-16] MEDS ORDERED: NALOXONE (NARCAN) HCL 4 MG/0.1 ML SPRAY NS PRN (16:06)
[2024-03-16] MEDS ORDERED: NICOTINE POLACRILEX 4 MG GUM BUC PRN (16:06)
[2024-03-16] MEDS ORDERED: hydrOXYzine PAMOATE 25 MG CAPSULE (FP) PO PRN (16:06)
[2024-03-16] MEDS ORDERED: NICOTINE POLACRILEX 4 MG LOZENGE BC PRN (16:06)
[2024-03-16] MEDS ORDERED: MAG HYDROX/AL HYDROX/SIMETH 30 ML UNIT-DOSE CUP PO PRN (16:06)
[2024-03-16] MEDS ORDERED: POLYETHYLENE GLYCOL (HEALTHYLAX) 3350 17 GM PACKET PO PRN (16:06)
[2024-03-16] MEDS: MELATONIN 5 MG TABLETS PO SCH (21:31)
[2024-03-16] MEDS: THIAMINE 100 MG TABLET PO SCH (21:31)
[2024-03-16] MEDS: ACETAMINOPHEN 325 MG TABLET (FP) PO PRN (21:32)
[2024-03-17] MEDS ORDERED: methaDONE HCL 40 MG DISPERSABLE TABLET PO SCH (07:30)
[2024-03-17] MEDS: NICOTINE 14 MG/24 HOURS TOPICAL PATCH TD SCH (09:38)
[2024-03-17] MEDS: PRENATAL VITAMINS W/ FOLIC ACID TABLET (FP) PO SCH (09:38)
[2024-03-17] MEDS: methaDONE 80 MG, methaDONE 10 MG PO SCH (09:40)
[2024-03-24] MEDS: methaDONE 80 MG, methaDONE 10 MG PO ONE (11:50)
[2024-03-25] MEDS ORDERED: methaDONE HCL 10 MG TABLET PO SCH (06:00)
[2024-03-25] MEDS: methaDONE 80 MG, methaDONE 10 MG PO SCH (06:04)
[2024-03-27] MEDS: methaDONE 80 MG, methaDONE 10 MG PO SCH (09:57)
[2024-04-03 06:53] VITALS: RESP 18; TEMP 97.7
[2024-04-03 09:13] VITALS: BP 122/80; PULSE 66
== END 2024-04-03 10:15 | disposition home or self-care (01) | DRG 772 ==
LOC: YASAS 14:41 → Y5N 14:43
PROVIDERS: ADMIT Allergy & Immunology; ATTEND Psychiatry & Neurology Pain Medicine
PROC: HZ42ZZZ Group Counseling for Substance Abuse Treatment, Cognitive-Behavioral (ICD-10-PCS; principal; 2024-03-16)
DX: F11.20 Opioid dependence, uncomplicated (principal); F10.20 Alcohol dependence, uncomplicated; F14.20 Cocaine dependence, uncomplicated; F13.20 Sedative, hypnotic or anxiolytic dependence, uncomplicated; F17.210 Nicotine dependence, cigarettes, uncomplicated; I10 Essential (primary) hypertension

== ENCOUNTER 2025-06-20 14:26 | Inpatient (IN) | payer OTHER ==
[2025-06-20 15:40] VITALS: BMI 20.9
[2025-06-20] MEDS ORDERED: BENZOCAINE/MENTHOL (CHLORASEPTIC ) LOZENGE MM PRN (15:43)
[2025-06-20] MEDS ORDERED: guaiFENesin 600 MG TABLET.ER (FP) PO PRN (15:43)
[2025-06-20] MEDS ORDERED: MAG HYDROX/AL HYDROX/SIMETH 30 ML UNIT-DOSE CUP PO PRN (15:43)
[2025-06-20] MEDS ORDERED: IBUPROFEN 400 MG TABLET (FP) PO PRN (15:43)
[2025-06-20] MEDS ORDERED: POLYETHYLENE GLYCOL (HEALTHYLAX) 3350 17 GM PACKET PO PRN (15:43)
[2025-06-20] MEDS ORDERED: MAGNESIUM HYDROX 2400MG/30ML ORAL SUSPENSION 30 ML CUP PO PRN (15:43)
[2025-06-20] MEDS ORDERED: BENZONATATE 200 MG CAPSULE PO PRN (15:43)
[2025-06-20] MEDS ORDERED: LOPERAMIDE HCL 2 MG CAPSULE PO PRN (15:43)
[2025-06-20] MEDS ORDERED: NALOXONE (NARCAN) HCL 4 MG/0.1 ML SPRAY NS PRN (15:43)
[2025-06-20] MEDS ORDERED: NICOTINE POLACRILEX 2 MG LOZENGE BC PRN (15:43)
[2025-06-20] MEDS: MELATONIN 5 MG TABLETS PO SCH (22:14)
[2025-06-20] MEDS: MIRTAZAPINE 15 MG TABLET (FP) PO SCH (22:14)
[2025-06-20] MEDS: THIAMINE 100 MG TABLET PO SCH (22:14)
[2025-06-21] MEDS: PRENATAL VITAMINS W/ FOLIC ACID TABLET (FP) PO SCH (10:17)
[2025-06-21] MEDS: NIFEdipine E.R 60 MG TABLET PO SCH (10:18)
[2025-06-21 11:16] LABS: MCHC 33.2 g/dl (32.3-36.5); MEAN CELL VOLUME 86.8 fl (79.0-92.2); MEAN PLT VOLUME 9.5 fl (9.4-12.4); RDW 12.7 % (12.2-16.1)
[2025-06-21 11:51] LABS: GLUCOSE,RANDOM 97 mg/dL (74-106); TOT PROT 8.3 g/dl (6.4-8.2)
[2025-06-21 11:52] LABS: CO2 25 mmol/L (21-32)
[2025-06-21 11:54] LABS: ALK PHOS 71 U/L (40-150)
[2025-06-21 11:56] LABS: CREATININE 0.96 mg/dL (0.55-1.3); SGOT/AST 27 U/L (5-34); SGPT/ALT 22 U/L (0-55)
[2025-06-24 08:54] LABS: EPI CELLS 7 /uL (0-25.1); HYALINE CASTS 1 /uL (0-3.1); URINE APPEARANCE CLOUDY; URINE BACTERIA 28 /uL (0-1359); URINE BILIRUBIN NEGATIVE (NEGATIVE); URINE COLOR YELLOW; URINE GLUCOSE (UA) NEGATIVE (NEGATIVE); URINE KETONE NEGATIVE (NEGATIVE); URINE LEUK ESTERASE TRACE (NEGATIVE); URINE NITRITE NEGATIVE (NEGATIVE); URINE PROTEIN NEGATIVE (NEGATIVE); URINE RBC 4 /uL (0-23.9); URINE UROBILINOGEN 0.2 mg/dL (0.2-1.0); URINE WBC 22 /uL (0-25.8)
[2025-06-26] MEDS: hydrOXYzine PAMOATE 25 MG CAPSULE (FP) PO PRN (21:31)
[2025-06-28] MEDS: ACETAMINOPHEN 325 MG TABLET (FP) PO PRN (21:31)
[2025-07-07] MEDS: IBUPROFEN 600 MG TABLET (FP) PO PRN (21:25)
[2025-07-11 06:40] VITALS: RESP 20; TEMP 97.9
[2025-07-11 08:56] VITALS: BP 134/91; PULSE 97
== END 2025-07-11 10:05 | disposition home or self-care (01) | DRG 772 ==
LOC: YASAS 14:26 → Y3NR 17:57 → Y5N 06-23 17:43
PROVIDERS: ADMIT Family Medicine; ATTEND Psychiatry & Neurology Pain Medicine
PROC: HZ42ZZZ Group Counseling for Substance Abuse Treatment, Cognitive-Behavioral (ICD-10-PCS; principal; 2025-06-20)
DX: F11.20 Opioid dependence, uncomplicated (principal); F14.20 Cocaine dependence, uncomplicated; F10.20 Alcohol dependence, uncomplicated; I10 Essential (primary) hypertension; F17.210 Nicotine dependence, cigarettes, uncomplicated; F41.8 Other specified anxiety disorders; M54.50 Low back pain, unspecified
CPT/HCPCS: 36415; 80053; 80305; 80307; 81003; 85027; 86780; 93005; 93010